=== PATIENT | male | born 1935 | race Caucasian/White ===

== ENCOUNTER 2016-10-25 09:14 | Day surgery (SDC) | payer OTHER, MEDICARE ==
[2016-10-11 13:49] VITALS: Ht 172.7 cm; Wt 65.9 kg
--- NOTE | 2016-10-11 14:22 | PAT Medication Instructions ---
Service Date October 11, 2016. Current Home Medication List Acetaminophen (Tylenol), 1,000 MG PO PRN Aluminum Hydroxide-Mag Carb (Gaviscon), 1 DOSE PO PRN Amitriptyline Hcl (Elavil), 50 MG PO HS Benazepril (Lotensin), 20 MG PO QAM Cetirizine (Zyrtec), 10 MG PO QAM Cholecalciferol (Vitamin D3), 1 TAB PO QAM Dutasteride (Avodart), 1 CAP PO QPM Esomeprazole Magnesium (Nexium), 40 MG PO QAM Lorazepam (Ativan), 1 MG PO 6XADAY Lutein (Lutein), 20 MG PO NOON Prochlorperazine Maleate (Compazine), 10 MG PO PRN Sennosides-Docusate Sodium (Stool Softener), 1 TAB PO PRN Wheat Dextrin (Benefiber Drink Mix), 1 DOSE PO QAM [Bonine], 1 TAB PO PRN Medication Instructions For Your Scheduled Surgery - Hold the following medications the morning of surgery: Aluminum Hydroxide-Mag Carb (Gaviscon), 1 DOSE PO PRN (if needed) Benazepril (Lotensin), 20 MG PO QAM Lutein (Lutein), 20 MG PO NOON Wheat Dextrin (Benefiber Drink Mix), 1 DOSE PO QAM Cetirizine (Zyrtec), 10 MG PO QAM Cholecalciferol (Vitamin D3), 1 TAB PO QAM Sennosides-Docusate Sodium (Stool Softener), 1 TAB PO PRN (if needed) - Take the following medications the morning of surgery with a sip of water OTHERWISE NOTHING TO EAT OR DRINK AFTER MIDNIGHT: Acetaminophen (Tylenol), 1,000 MG PO PRN (may take if needed up to 4 hours prior to surgery) [Bonine], (Meclizine) 1 TAB PO PRN (if needed) Esomeprazole Magnesium (Nexium), 40 MG PO QAM Prochlorperazine Maleate (Compazine), 10 MG PO PRN (if needed) Lorazepam (Ativan), 1 MG PO 6XADAY (if needed) - Take the following medications as scheduled the night before surgery: Acetaminophen (Tylenol), 1,000 MG PO PRN (if needed) Aluminum Hydroxide-Mag Carb (Gaviscon), 1 DOSE PO PRN (if needed) Dutasteride (Avodart), 1 CAP PO QPM Amitriptyline Hcl (Elavil), 50 MG PO HS [Bonine], (Meclizine) 1 TAB PO PRN (if needed) Sennosides-Docusate Sodium (Stool Softener), 1 TAB PO PRN (if needed) Prochlorperazine Maleate (Compazine), 10 MG PO PRN (if needed) Lorazepam (Ativan), 1 MG PO 6XADAY (if needed) If you have any questions please call us at [phone] or [phone] or [phone]
[2016-10-11 14:52] LABS: BASO % 0.5 %; BASO ABS # 0.03 K/uL (0-0.2); COMPLETE YES; EOS % 2.3 %; HEMATOCRIT 41.2 % (42-52); IG% 0.2 %; LYMPH % 19.3 %; LYMPH ABS # 1.16 K/uL (1.2-3.4); MEAN CELL VOLUME 91.6 fL (80-100); MEAN CORPUSCULAR HEMOGLOBIN 31.6 pg (25-34); MEAN CORPUSCULAR HGB CONC 34.5 g/dl (32-36); MEAN PLATELET VOLUME 9.4 fL (7.4-10.4); MONO % 8.1 %; NEUT % 69.6 %; PLATELET COUNT 177 K/uL (130-400); WHITE BLOOD COUNT 6.02 K/uL (4.8-10.8)
[2016-10-11 15:08] LABS: URINE APPEARANCE CLEAR (CLEAR); URINE BILIRUBIN NEG (NEG); URINE COLOR YELLOW; URINE NITRITE NEG (NEG); URINE SPECIFIC GRAVITY 1.008 (1.000-1.030); UROBILINOGEN NEG (NEG)
[2016-10-11 15:09] LABS: MANUAL MICROSCOPIC REQUIRED? NO; REVIEW REQ? NO
--- NOTE | 2016-10-11 15:26 | DIAGNOSTIC IMAGING REPORT ---
CHEST PREADMISSION(PA/LAT) HISTORY: Preop. COMPARISON: None. FINDINGS: The lungs are clear. Cardiac silhouette is normal in size. No pleural effusions. No pneumothorax. Small to moderate hiatus hernia. IMPRESSION: No acute process. Small to moderate hiatus hernia. Electronically signed by: Gurinder Garcia M.D. 10/11/2016 3:25 PM Dictated Date/Time: 10/11/2016 3:23 PM
[2016-10-11 15:57] LABS: BUN/CREATININE RATIO 9.7 (10-20); CALCIUM 8.6 mg/dl (8.5-10.1); CREATININE 1.1 mg/dl (0.60-1.40); POTASSIUM 3.9 mmol/L (3.5-5.1)
[~2016-10-25] VITALS: Ht 172.7 cm; Wt 65.9 kg
[~2016-10-25 09:14] MED LIST: ACET-1256 PO; ALUMSUS21 PO; AMT50 PO; ATV/1 PO; BENA20TA14 PO; BONINE PO; CETI10TA84 PO; CHOL1000 PO; CIPROFLOXACIN / D5W 400 MG IV SCH; DUTA0.5C PO; LACTATED RINGER'S 1000ML 1,000 ML IV SCH; LUTE20CA PO; NXM/40 PO; PROC1TAB5 PO; SENNTAB23 PO; WHEAPOW PO
[2016-10-25] MEDS ORDERED: PROPOFOL IV EMULSION 10 MG/ML 20 ML VIAL IV ONE ×2 (09:40→10:20)
[2016-10-25] MEDS ORDERED: MIDAZOLAM HCL 1 MG/ML 2ML VIAL ONE (09:40)
[2016-10-25] MEDS ORDERED: LIDOCAINE HCL 2% 2 ML VIAL (20MG/ML) ONE (09:40)
[2016-10-25] MEDS ORDERED: FENTANYL CITRATE INJ 50 MCG/1 ML 2 ML VIAL ONE (09:40)
[2016-10-25 09:47] VITALS: BP 171/83; PULSE 85; TEMP 36.5; O2SAT 97
--- NOTE | 2016-10-25 09:47 | History & Physical Bridge Note ---
H&P Re-Evaluation Bridge Note: I have examined the patient, reviewed the History & Physical and in the interval since the performance of the History & Physical I have noted the following changes of clinical significance: No changes noted
[2016-10-25] MEDS ORDERED: CIPR-255 PO (09:53)
--- NOTE | 2016-10-25 09:55 | Discharge Instructions ---
Discharge Instructions Date of Service Oct 25, 2016. Admission Reason for Admission: Benign Prostatic Hypertrophy Discharge Discharge Diagnosis / Problem: BPH Discharge Goals Goal(s): Decrease discomfort, Improve function, Increase independence, Improve disease control, Prevent Disease Progression Activity Recommendations Activity Limitations: resume your previous activity Lifting Limitations: none Exercise/Sports Limitations: none May Resume Sexual Activity: when tolerated Shower/Bathe: no limitations Driving or Machine Use: no limitations . Instructions / Follow-Up Instructions / Follow-Up It is normal to see some amount of blood in your urine as well as to experience some urinary frequency and urgency. It is also quite common to have some dysuria (burning). If the burning is severe, please use AZO (available over the counter at most pharmacies) Discharge Diet Recommended Diet: Regular Diet Pending Studies Studies pending at discharge: no Medical Emergencies . Who to Call and When: Medical Emergencies: If at any time you feel your situation is an emergency, please call 911 immediately. . Non-Emergent Contact Non-Emergency issues call your: Urologist Call Non-Emergent contact if: you have a fever, temperature is above 101.5, your pain is not controlled, your pain is worsening . . "Provider Documentation" section prepared by Arturo Santiago. . VTE Core Measure Inpt VTE Proph given/why not?: Treatment not indicated
[2016-10-25] MEDS ORDERED: ONDANSETRON INJ 2 MG/ML 2 ML VIAL ONE (10:14)
[2016-10-25] MEDS ORDERED: ONDANSETRON INJ 2 MG/ML 2 ML VIAL IV PRN (10:30)
[2016-10-25] MEDS ORDERED: EpHEDrine SULFATE INJ 50 MG/ML AMP IV PRN (10:30)
[2016-10-25] MEDS ORDERED: ATROPINE SULFATE 0.1 MG/ML 5ML SYR IV PRN (10:30)
[2016-10-25] MEDS ORDERED: FENTANYL CITRATE INJ 50 MCG/1 ML 2 ML VIAL IV PRN (10:30)
--- NOTE | 2016-10-25 10:46 | [facility] Post Operative Brief Note ---
Immediate Operative Summary Operative Date Oct 25, 2016. Pre-Operative Diagnosis Benign Prostatic Hyperplasia Post-Operative Diagnosis Benign Prostatic Hyperplasia Procedure(s) Performed Cystoscopy with Urolift Surgeon Dr. Beryl Langford [employer] Driver Surgeon(s) none Estimated Blood Loss 5mL Findings Lateral lobe hypertrophy and an intravesical component of the prostate; 5 total implants used Specimens none per surgeon Drains 16F coude catheter Anesthesia gen Complication(s) None Disposition Recovery Room / PACU (stable)
[2016-10-25] MEDS ORDERED: ACETAMINOPHEN 325 MG TAB PO PRN (11:00)
[2016-10-25] MEDS ORDERED: HYDROCODONE/ACETAMOPHEN 5/325MG TAB PO PRN (11:00)
[2016-10-25 11:15] VITALS: BP 164/79; PULSE 70; TEMP 36.5; O2SAT 98
[2016-10-25] MEDS ORDERED: ACETAMINOPHEN 325 MG TAB ONE (11:29)
--- NOTE | 2016-10-25 11:30 | OPERATIVE REPORT ---
DATE OF OPERATION: 10/25/2016 PREOPERATIVE DIAGNOSIS: Benign prostatic hypertrophy. POSTOPERATIVE DIAGNOSIS: Benign prostatic hypertrophy. PROCEDURE PERFORMED: Cystoscopy and UroLift prostatic urethra lift. SURGEON: Dr. Vincent Langford. ANESTHESIA: Sedation. ESTIMATED BLOOD LOSS: 5 mL. URINE OUTPUT: Not recorded. SPECIMENS: There are no specimens. COMPLICATIONS: There are no complications. DRAINS: A 16-Chinese coude tip catheter. OPERATION AND FINDINGS: DESCRIPTION OF THE PROCEDURE: Peyman Grigsby was identified in the preoperative holding area. Appropriate informed consents were reviewed and completed and the patient was transported to the operating suite. Upon arrival, he received appropriate preoperative antibiotics in the form of Cipro. Adequate sedation was achieved and the patient was placed in dorsal lithotomy position where he was sterilely prepped and draped in standard fashion. I began the case by passing a cystoscope per urethra. Inspection revealed no evidence of stricture disease and moderately enlarged prostate with notable lateral lobe impingement as well as an intravesical median lobe. Bladder was fully inspected and found to be free of any mucosal abnormalities or disease. At that time, I exchanged the visual obturator for the device itself. I moved to the patient's left hand side of the prostate and placed my first device approximately 2 cm on the bladder neck. On the right side, I performed the same procedure placing a single device in this area. Of note, this created improvement in opening of the bladder neck, but he still had impingement from his posterior prostate wall and the median lobe. I placed my next 2 devices adjacent to the verumontanum in standard fashion. This again dramatically improved atypical aspect of the prostate, but he still had some obstruction from this median lobe protruding end in the region of the bladder neck. A fifth device was placed into this median lobe from the patient's right hand side directed towards the left hand side in an effort to tack this lobe out of the midline. There appeared to be relatively good results with this and excellent hemostasis. I did leave a 16 Chinese coude catheter as a precaution. The patient was subsequently reversed from anesthesia and taken to the PACU in stable condition. I attest to the content of the Intraoperative Record and any orders documented therein. Any exception s are noted below.
--- NOTE | 2016-10-25 11:31 | Anesthesiology Progress Note ---
Anesthesia Post Op Note Date & Time Oct 25, 2016 at 11:31 Vital Signs Pain Intensity: 0 Vital Signs Past 12 Hours Date Time Temp Pulse Resp B/P (MAP) Pulse Ox O2 Delivery O2 Flow Rate FiO2 10/25/16 11:15 36.5 70 18 164/79 98 Room Air 10/25/16 11:05 36.6 77 16 155/88 98 Room Air 10/25/16 10:55 89 16 153/90 100 Room Air 10/25/16 10:48 37.0 93 16 135/73 100 Room Air 10/25/16 09:47 36.5 85 20 171/83 (112) 97 Room Air Notes Mental Status: alert / awake / arousable, participated in evaluation Pt Amnestic to Procedure: Yes Nausea / Vomiting: adequately controlled Pain: adequately controlled Airway Patency, RR, SpO2: stable & adequate BP & HR: stable & adequate Hydration State: stable & adequate Anesthetic Complications: no major complications apparent
[2016-10-25 11:45] VITALS: BP 170/79; PULSE 83; TEMP 36.2; O2SAT 99
== END 2016-10-25 12:20 | disposition home or self-care (01) ==
LOC: C.ACU 09:14
PROVIDERS: ATTEND Urology
DX: N40.1 Benign prostatic hyperplasia with lower urinary tract symptoms (principal); N13.8 Other obstructive and reflux uropathy; N39.41 Urge incontinence; I10 Essential (primary) hypertension; F41.9 Anxiety disorder, unspecified; Z68.22 Body mass index [BMI] 22.0-22.9, adult; Z98.41 Cataract extraction status, right eye; Z98.42 Cataract extraction status, left eye; Z90.49 Acquired absence of other specified parts of digestive tract; Z82.49 Family history of ischemic heart disease and other diseases of the circulatory system